=== PATIENT | female | born 1965 | race Caucasian/White ===

== ENCOUNTER 2020-02-02 09:05 | Emergency (ER) | payer OTHER ==
[~2020-02-02] VITALS: Ht 162.6 cm; Wt 64.2 kg
[2020-02-02 09:40] VITALS: BP 142/97
[2020-02-02] MEDS ORDERED: ondansetron/PF 4mg/2ml inj IV PRN (10:15)
[2020-02-02] MEDS ORDERED: normal saline 1000ML IV soln IVB ONE (10:15)
[2020-02-02] MEDS ORDERED: morphine 4 MG/ML inj SYRINge IV PRN (10:15)
[2020-02-02] MEDS ORDERED: iohexol 300mg/ml 100ml inj. ONE (10:20)
== END 2020-02-02 12:05 | disposition home or self-care (01) ==
LOC: ER 09:06
DX: S20.212A Contusion of left front wall of thorax, initial encounter (principal); G89.29 Other chronic pain; Z88.2 Allergy status to sulfonamides; Z88.5 Allergy status to narcotic agent; W55.12XA Struck by horse, initial encounter; Y93.89 Activity, other specified; Y92.89 Other specified places as the place of occurrence of the external cause; Y99.8 Other external cause status
CPT/HCPCS: 71260; 74177; 99285; J7030; Q9967